=== PATIENT | female | born 1950 | race Hispanic/Latino ===

== ENCOUNTER → 2019-05-12 | Outpatient (CLI) | payer MEDICARE ==
[2019-05-10 13:57] LABS: BASOPHILS % 0.5 % (0.0-1.0); EOSINOPHILS # (AUTO) 0.1 (0.0-0.4); HEMATOCRIT 35.4 % (34.2-44.1); HEMOGLOBIN 10.8 g/dL (12.0-16.0); LYMPHOCYTES # (AUTO) 0.7 (1.0-3.2); LYMPHOCYTES % 7.9 % (18.0-39.1); MEAN CORPUSCULAR HEMOGLOBIN 27.8 pg (28-32); MEAN CORPUSCULAR HGB CONC 30.5 g/dL (31-35); MEAN CORPUSCULAR VOLUME 91.2 fL (81-99); MONOCYTES # (AUTO) 0.5 (0.2-0.8); MONOCYTES % 6.3 % (4.4-11.3); NEUTROPHILS # (AUTO) 6.9 (2.1-6.9); NEUTROPHILS % 83.9 % (38.7-80.0); PLATELET COUNT 145 x10e3/uL (140-360); RED BLOOD COUNT 3.88 x10e6/uL (3.6-5.1); RED CELL DISTRIBUTION WIDTH 13.7 % (11.7-14.4)
[2019-05-10 14:12] LABS: INR 0.95; PROTHROMBIN TIME 13.2 seconds (11.9-14.5)
[2019-05-10 14:13] LABS: PARTIAL THROMBOPLASTIN TIME 33.6 seconds (23.8-35.5)
--- NOTE | 2019-05-10 14:14 | Diagnostic Imaging Report ---
EXAMINATION: CHEST 2 VIEWS INDICATION: ^PREOP COMPARISON: None FINDINGS: PA and lateral views TUBES and LINES: None. LUNGS: Lungs are well inflated. Minimal left lung linear atelectasis versus scar. The lungs are otherwise clear. There is no evidence of pneumonia or pulmonary edema. PLEURA: No pleural effusion or pneumothorax. HEART AND MEDIASTINUM: The cardiomediastinal silhouette is unremarkable. BONES AND SOFT TISSUES: No acute osseous lesion. Left upper arm stents are noted. UPPER ABDOMEN: No free air under the diaphragm. IMPRESSION: No acute thoracic radiographic abnormality. Signed by: Ronn Berumen MD on 05/10/2019 2:12 PM
[2019-05-10 14:20] LABS: ALBUMIN 3.8 g/dL (3.5-5.0); ALBUMIN/GLOBULIN RATIO 1.2 (0.8-2.0); ANION GAP 10.7 mmol/L (8-16); CALCIUM 9.6 mg/dL (8.4-10.2); CREATININE, SERUM 1.9 mg/dL (0.57-1.11); POTASSIUM 5.7 mmol/L (3.5-5.1)
[~2019-05-12] MED LIST: ADVAIR 250-501 EACH INH; ALBUTEROL0.63 MG/3 INH; CARVEDILOL12.5 MG PO; COREG PO; COREG25 MG PO; COZAAR25 MG PO; ENTERAGAM PO; FAMOTIDINE20 MG PO; FUROSEMIDE40 MG PO; GABAPENTIN300 MG PO; GABAPENTIN400 MG PO; HUMALOG; HUMALOG SQ; HUMULIN N100 UNITS/ SC; LEVOTHYROXINE PO; LOMOTIL TABLET1 EACH PO; LOPID600 MG PO; MYCOPHENOLATE250 MG PO; NOVOLOG MI100 UNIT/1 SC; NOVOLOG100 UNITS1 SC; PICOT; PREDNISONE5 MG PO; RENVELA0.8 GM PO; RENVELA800 MG PO; TACROLIMUS1 MG PO; ULTRAM 50MG50 MG PO; VITAMIN D32000 UNIT PO; [UNRECOGNIZED DRUG - OTHER]
== END ==
LOC: RAD 05:00 → EDSTATUS 05-17 08:00
PROVIDERS: ATTEND Urology
DX: Z01.818 Encounter for other preprocedural examination (principal); N39.3 Stress incontinence (female) (male); Z53.8 Procedure and treatment not carried out for other reasons
CPT/HCPCS: 36415; 71046; 80053; 85025; 85610; 85730; 87086; 87186; 93005